=== PATIENT | male | born 1940 | race Caucasian/White ===

== ENCOUNTER 2023-01-18 09:27 | Emergency (ER) | payer OTHER, SELFPAY ==
[2023-01-18] VITALS (7 sets, daily range): BP systolic 129–159; BP diastolic 66–90; PULSE 62–87; RESP 16; TEMP 36.4; O2SAT 94–98; BMI 22.8
--- NOTE | 2023-01-18 09:41 | DI.CT.S_ITS ---
PROCEDURE: CT HEAD/BRAIN WO CON INDICATIONS: GAIT DISTURBANCE X1 MONTH TECHNIQUE: Noncontrast 4.5 mm thick angled axial sections acquired from the foramen magnum to the vertex, with coronal and sagittal reformats. For radiation dose reduction, the following was used: automated exposure control, adjustment of mA and/or kV according to patient size. COMPARISON: [facility], CR, XR CHEST 1V, 01/18/2023, 9:46. [facility], CT, CT ANGIO HEAD AND NECK, 01/18/2023, 10:33. FINDINGS: Image quality: Excellent. CSF spaces: Basal cisterns are patent. No extra-axial fluid collections. The ventricles are symmetric in size and shape. Brain: No intracranial bleeds or masses. There is cerebral volume loss for age, with resultant ventricular and sulcal prominence. There are periventricular and deep white matter chronic small vessel ischemic changes. There is intracranial internal carotid artery atherosclerosis. Skull and face: Calvarium and visualized facial bones appear intact, without suspicious lesions. Sinuses: Visualized sinuses and mastoids are clear. IMPRESSION: No territorial infarct is seen. No acute intracranial process is seen. No acute intracranial hemorrhage is seen. If there is strong clinical suspicion for an acute stroke, please consider a brain MRI for further evaluation, as it is more sensitive (assuming that there is no contraindication to MRI). Dictated by: Phillip Otero M.D. on 01/18/2023 at 9:52 Approved by: Phillip Otero M.D. on 01/18/2023 at 9:52
--- NOTE | 2023-01-18 09:41 | DI.RAD.S_ITS ---
PROCEDURE: XR CHEST 1V INDICATIONS: LIGHTHEADED, GEN WEAKNESS TECHNIQUE: One view of the chest was acquired. COMPARISON: None. FINDINGS: Surgical changes and devices: None. Lungs and pleura: Lungs are clear. No pleural effusions or pneumothorax. Mediastinum: The cardiac contours are within normal limits. The aorta demonstrates calcification and tortuosity. Bones and chest wall: No suspicious bony lesions. Overlying soft tissues appear unremarkable. IMPRESSION: Portable chest within normal limits for age. Dictated by: Phillip Otero M.D. on 01/18/2023 at 9:21 Approved by: Phillip Otero M.D. on 01/18/2023 at 9:22
--- NOTE | 2023-01-18 09:43 | ED.NEUROSD ---
HPI - Neuro Symptoms/Deficit General Chief Complaint: Neuro Symptoms/Deficit Stated Complaint: sent from [facility]; balance issues/dizzy/shaking Time Seen by Provider: 01/18/23 09:41 History of Present Illness HPI Narrative: 1 month of generalized gait disturbance (I feel wobbly). Patient presents from home by private vehicle for 1 month of symptoms. He states that he feels off balance when he walks, and it is particularly worse when the ground has changes and elevation. Patient states that yesterday he was working outside when he became so dizzy that he had to hold onto objects to get back into the house. This morning he was dizzy when he showered and decided to present for evaluation. Patient denies a room spinning sensation. He has difficulty in describing the type of dizziness that he has, he repeatedly states that he feels ?wobbly?. He has not sought medical care for this issue yet. On Anticoagulants: No Related Data Allergies Allergy/AdvReac Type Severity Reaction Status Date / Time Codeine Allergy Unknown CONFUSION/N Uncoded 08/26/17 12:10 AUSEA Review of Systems Review of Systems Narrative: CONSTITUTIONAL- Denies: fever, chills, fatigue HEENT- Denies: sore throat, nosebleed, vision changes RESPIRATORY- Denies: shortness of breath, cough, wheezing CARDIAC- Denies: chest pain, edema, orthopnea GI- Denies: abdominal pain, nausea, vomiting, constipation, diarrhea - Denies: frequency, dysuria, hematuria, flank pain MSK- Denies: extremity pain, extremity swelling, joint pain, joint swelling SKIN- Denies: rash, itching, burn, swelling NEUROLOGICAL-reports: Gait disturbance, dizziness Denies: headache, numbness, weakness PSYCHIATRIC- Denies: anxiety, depression, suicidal ideation, homicidal ideation Hematologic/Lymphatic On Anticoagulants: No Exam Initial Vital Signs Initial Vital Signs: Vital Signs Blood Pressure 159/90 H 01/18/23 09:31 Pulse Oximetry 97 01/18/23 09:31 Const: Well-nourished, Well-developed, appears stated age Eyes: PERRL, EOMI, conjunctiva normal ENT: Atraumatic, dentition normal, mucous membranes moist Cardiac: regular rate, regular rhythm RESP: unlabored, clear bilaterally, no wheezing GI: Atraumatic, soft, nontender, nondistended, no rebound, no guarding MSK: Atraumatic, full range of motion, pulses equal Skin: Warm, Dry, intact, no rashes Neuro: AO x3, CN II-XII grossly intact, moves all extremities, gait normal, no ataxia Psych: affect normal, mood normal, not suicidal, not homicidal Course Course Course Narrative: Nontoxic appearing patient with approximately 1 month of symptoms. I observed the patient's gait, there did not appear to be any gait instability or ataxia. Patient states that he has had vertigo in the past and this feels different, but does mention that his brother had an issue with 1 of the arteries in his brain that had to be operated on. Patient does not remember his medical history or the medications that he takes. I attempted to reach out to the next of kin, patient's son Marcos Warren, however there was no answer and I left a voicemail. Will obtain labs/imaging. Orders Ordered: ED Orders 01/18/23 09:40 CBC Auto Diff [Complete Blood Count AUTO DIFF] Stat CMP [Comprehensive Metabolic Panel] Stat Thyroid Stimulating Hormone Stat Trop I [Troponin I] Stat 01/18/23 09:41 CT head/brain wo con Stat Chest [XR chest 1V] Stat 01/18/23 10:20 Ammonia (NH3) Stat 01/18/23 10:37 CT angio head and neck Stat 01/18/23 10:40 Ictotest Urine Stat UA Complete [Urinalysis and Microscopic] Stat Reevaluation(s) Reevaluation #1: Laboratory work is significant for hyperglycemia, elevated liver enzymes. Patient states this he does not drink alcohol. We will add ammonia level Reevaluation #2: Ammonia level normal. Imaging significant for 70% left ICA stenosis, no infarcts noted. Patient ambulatory through the hallways without any difficulty. I advised the patient of his lab and imaging findings, I do not know the cause of his symptoms but there does not appear to be any indication for hospitalization at this moment. Patient leaves the end of the month to go back home to [place], he will follow up with his primary care physician at that time. Patient advised to return to the emergency department for any new or worsening concerns. ED return precautions discussed at bedside. Patient expressed understanding of the plan and is in agreement at this time. All questions answered at the time of discharge. Vital Signs Vital signs: Vital Signs - 8 hr 01/18/23 09:37 01/18/23 09:31 01/18/23 09:31 Temperature 97.5 F L Pulse Rate 87 Respiratory Rate 16 Blood Pressure 159/90 H 159/90 H Pulse Oximetry 98 97 Oxygen Delivery Method Room Air 01/18/23 10:00 01/18/23 10:00 01/18/23 10:32 Temperature Pulse Rate 67 69 Respiratory Rate Blood Pressure 129/68 Pulse Oximetry 94 96 Oxygen Delivery Method 01/18/23 10:41 01/18/23 10:41 01/18/23 11:00 Temperature Pulse Rate 68 65 Respiratory Rate Blood Pressure 133/70 Pulse Oximetry 94 94 Oxygen Delivery Method 01/18/23 11:30 01/18/23 11:30 Temperature Pulse Rate 62 Respiratory Rate Blood Pressure 139/66 Pulse Oximetry 95 Oxygen Delivery Method MDM - Neuro Symptoms/Deficit Lab Data 01/18/23 09:40 01/18/23 09:40 Labs: Lab Results 01/18/23 01/18/23 01/18/23 Range/Units 09:40 09:40 09:40 WBC 8.2 (4.5-11.0) X10^3/uL RBC 4.76 (4.5-5.9) X10^6/uL Hgb 15.9 (13.5-17.5) g/dL Hct 45.7 (41-53) % MCV 95.8 (80-100) fL MCH 33.4 (26-34) PG MCHC 34.9 (30-36) % RDW 13.2 (11.6-14.8) % Plt Count 229 (150-400) X10^3/uL Neut % (Auto) 57.6 (50-75) % Lymph % (Auto) 18.0 L (25-40) % Slope % (Auto) 11.6 (3-14) % Eos % (Auto) 11.4 H (2-4) % Baso % (Auto) 1.4 (0-2) % Neut # (Auto) 4700 (7933-9118) /uL Lymph # (Auto) 1500 (0894-6724) /uL [place]ope # (Auto) 900 (0-900) /uL Eos # (Auto) 900 H (0-450) /uL Baso # (Auto) 100 (0-100) /uL Sodium 134 L (137-145) mmol/L Potassium 4.4 (3.4-5.1) mmol/L Chloride 101 (98-107) mmol/L Carbon Dioxide 23 (22-32) mmol/L BUN 24 H (9-20) mg/dL Creatinine 1.13 (0.66-1.25) mg/dL Estimated GFR > 60 (>60) mL/min BUN/Creatinine Ratio 21.2 (6-22) Glucose 282 H (80-110) mg/dL Calcium 9.7 (8.4-10.2) mg/dL Total Bilirubin 2.2 H (0.2-1.3) mg/dL AST 272 H (17-59) IU/L ALT 474 H (<50) IU/L Alkaline Phosphatase 664 H (38-126) U/L Ammonia (9-30) umol/L Troponin I < 0.012 (0.01-0.034) ng/mL Total Protein 8.2 (6.3-8.2) g/dL Albumin 4.2 (3.5-5.0) g/dL Globulin 4.0 (1.7-4.1) g/dL Albumin/Globulin Ratio 1.1 (1.0-2.8) TSH 1.06 (0.47-4.68) uIU/mL Urine Color Urine Appearance Urine pH (4.5-8.0) Ur Specific [place] (1.000-1.035) Urine Protein (Negative) Urine Glucose (UA) (Negative) g/dL Urine Ketones (NEGATIVE) Urine Occult Blood (Negative) Urine Nitrate (Negative) Urine Bilirubin (NEGATIVE) Ur Bilirubin Confirm (Negative) Urine Urobilinogen (0.2) E.U./dL Ur Leukocyte Esterase (NEGATIVE) Urine RBC (0-5/HPF) Urine WBC (0-5/HPF) Ur Squamous Epith Cells (0-5/HPF) Urine Bacteria (None) Granular Casts (None) Ur Culture Indicated? 01/18/23 01/18/23 Range/Units 10:20 10:40 WBC (4.5-11.0) X10^3/uL RBC (4.5-5.9) X10^6/uL Hgb (13.5-17.5) g/dL Hct (41-53) % MCV (80-100) fL MCH (26-34) PG MCHC (30-36) % RDW (11.6-14.8) % Plt Count (150-400) X10^3/uL Neut % (Auto) (50-75) % Lymph % (Auto) (25-40) % Slope % (Auto) (3-14) % Eos % (Auto) (2-4) % Baso % (Auto) (0-2) % Neut # (Auto) (7564-6210) /uL Lymph # (Auto) (7901-2785) /uL Slope # (Auto) (0-900) /uL Eos # (Auto) (0-450) /uL Baso # (Auto) (0-100) /uL Sodium (137-145) mmol/L Potassium (3.4-5.1) mmol/L Chloride (98-107) mmol/L Carbon Dioxide (22-32) mmol/L BUN (9-20) mg/dL Creatinine (0.66-1.25) mg/dL Estimated GFR (>60) mL/min BUN/Creatinine Ratio (6-22) Glucose (80-110) mg/dL Calcium (8.4-10.2) mg/dL Total Bilirubin (0.2-1.3) mg/dL AST (17-59) IU/L ALT (<50) IU/L Alkaline Phosphatase (38-126) U/L Ammonia 22 (9-30) umol/L Troponin I (0.01-0.034) ng/mL Total Protein (6.3-8.2) g/dL Albumin (3.5-5.0) g/dL Globulin (1.7-4.1) g/dL Albumin/Globulin Ratio (1.0-2.8) TSH (0.47-4.68) uIU/mL Urine Color Yellow Urine Appearance Clear Urine pH 5.0 (4.5-8.0) Ur Specific [place] 1.025 (1.000-1.035) Urine Protein 2+ H (Negative) Urine Glucose (UA) 2+ H (Negative) g/dL Urine Ketones Trace H (NEGATIVE) Urine Occult Blood Trace-intact (Negative) Urine Nitrate Negative (Negative) Urine Bilirubin 1+ H (NEGATIVE) Ur Bilirubin Confirm Positive H (Negative) Urine Urobilinogen 4.0 H (0.2) E.U./dL Ur Leukocyte Esterase Negative (NEGATIVE) Urine RBC 1-5/hpf (0-5/HPF) Urine WBC 0-1/hpf (0-5/HPF) Ur Squamous Epith Cells 0-1 /hpf (0-5/HPF) Urine Bacteria Occasional (0-1) (None) Granular Casts 5-10/lpf (None) Ur Culture Indicated? Cult not indicated Urine Dip Bedside Urine Glucose 500 mg/dl Bedside Urine Bilirubin - Negative Bedside Urine Ketone +/- 5 Urine Specific [place] 1.015 Bedside Urine Occult Blood +/- Bedside Urine pH 5.5 Bedside Urine Protein + 30 Bedside Urine Urobilinogen +/- 1mg Bedside Urine Nitrite - Negative Bedside Urine Leukocytes - Negative Esterase Discharge Plan Departure Patient Disposition: Home Clinical Impression: Elevated liver enzymes Instructions: How to Prevent Falls, Liver Function Tests, DI for Carotid Artery Stenosis Activity Restrictions/Additional Instructions: I DO NOT KNOW THE CAUSE FOR YOUR GAIT INSTABILITY, HOWEVER YOUR CT SCAN SHOWED NO EVIDENCE OF STROKE. YOU DID HAVE 70% NARROWING OF YOUR LEFT PROXIMAL INTERNAL CAROTID ARTERY, I RECOMMEND THAT YOU FOLLOW-UP WITH YOUR PRIMARY CARE PHYSICIAN FOR THIS ISSUE. IN ADDITION YOUR LIVER ENZYMES WERE ELEVATED, HOWEVER WE HAVE NO PREVIOUS VALUES AND THIS COULD BE CHRONIC. AGAIN, I RECOMMEND THAT YOU FOLLOW-UP WITH YOUR PRIMARY CARE PHYSICIAN FOR THIS FINDING. AVOID TYLENOL AND ALCOHOL. Referrals: Miscellaneous,Doctor[facility] [Primary Care Provider] - Denisa Harvey MD [Physician] - Stand Alone Forms: Patient Portal/API
[2023-01-18 09:53] LABS: Add Manual Diff / Slide Review NO; Basophils Absolute Auto 100 /uL (0-100); Basophils Percent Auto 1.4 % (0-2); Eosinophils Absolute Auto 900 /uL (0-450); Eosinophils Percent Auto 11.4 % (2-4); Hematocrit 45.7 % (41-53); Hemoglobin 15.9 g/dL (13.5-17.5); Lymphocytes Absolute Auto 1500 /uL (1100-4500); Mean Corpuscular HGB Conc 34.9 % (30-36); Mean Corpuscular Hemoglobin 33.4 PG (26-34); Mean Corpuscular Volume 95.8 fL (80-100); Monocytes Absolute Auto 900 /uL (0-900); Monocytes Percent Auto 11.6 % (3-14); Neutrophils Absolute Auto 4700 /uL (1500-7000); Neutrophils Percent Auto 57.6 % (50-75); Platelet Count 229 X10^3/uL (150-400); Red Blood Cell Count 4.76 X10^6/uL (4.5-5.9); Red Cell Distribution Width 13.2 % (11.6-14.8); White Blood Cell Count 8.2 X10^3/uL (4.5-11.0)
[2023-01-18 10:04] LABS: Alanine Aminotransferase 474 IU/L (<50); Albumin 4.2 g/dL (3.5-5.0); Albumin Globulin Ratio 1.1 (1.0-2.8); Alkaline Phosphatase 664 U/L (38-126); Aspartate Aminotransferase 272 IU/L (17-59); BUN Creatinine Ratio 21.2 (6-22); Bilirubin Total 2.2 mg/dL (0.2-1.3); Blood Urea Nitrogen 24 mg/dL (9-20); Calcium 9.7 mg/dL (8.4-10.2); Carbon Dioxide 23 mmol/L (22-32); Chloride 101 mmol/L (98-107); Estimated Glomerular Filt Rate > 60 mL/min (>60); Glucose 282 mg/dL (80-110); HEMOLYSIS 20 (0-50); Potassium 4.4 mmol/L (3.4-5.1); Sodium 134 mmol/L (137-145); Total Protein 8.2 g/dL (6.3-8.2)
[2023-01-18 10:16] LABS: Troponin I < 0.012 ng/mL (0.01-0.034)
--- NOTE | 2023-01-18 10:22 | PC.NURSE ---
Patient left department with technology risk intern to diagnostic department.
[2023-01-18 10:35] LABS: Thyroid Stimulating Hormone 1.06 uIU/mL (0.47-4.68)
--- NOTE | 2023-01-18 10:37 | DI.CT.S_ITS ---
PROCEDURE: CT ANGIO HEAD AND NECK INDICATIONS: GAIT DISTURBANCE X 1 MONTH TECHNIQUE: After the administration of intravenous contrast, 1 mm thick sections acquired from the aortic arch through the [place] of [place]. 3-dimensional iypstep-nfzauiruf-xqaqhdqpsq (MIP) and/or volume rendering reformats were acquired of the central intracranial vasculature and neck separately. For radiation dose reduction, the following was used: automated exposure control, adjustment of mA and/or kV according to patient size. COMPARISON: [facility], CR, XR CHEST 1V, 01/18/2023, 9:46. [facility], CT, CT HEAD/BRAIN WO CON, 01/18/2023, 10:33. FINDINGS: Image quality: Diagnostic. BRAIN: CSF spaces: Ventricles are normal in size and shape. Basal cisterns are patent. No extra-axial fluid collections. Brain: No significant abnormality of the brain can be seen. Skull and face: Calvarium and facial bones appear intact, without suspicious lesions. Orbits appear normal. Sinuses: Sinuses and mastoids are clear. HEAD CT ANGIOGRAPHY: Anterior circulation: Intracranial internal carotid arteries are normal in size and flow. The flow within the paired anterior cerebral arteries is normal and symmetric. Note is made of an accessory branch of the a anterior cerebral artery system, which emanates from the anterior communicating artery. The flow within the middle cerebral arteries is normal and symmetric. The anterior communicating artery is seen. No aneurysms are seen. Posterior circulation: Visualized portions of the vertebral arteries demonstrate normal caliber, and join to form a normal appearing basilar artery. Flow within the posterior cerebral arteries is normal and symmetric. No aneurysms are seen. NECK CT ANGIOGRAPHY: Carotid system: The great vessels demonstrate a conventional anatomy as they arise from the aortic arch. The origins of the common carotid arteries appear patent. The common carotid arteries demonstrate normal caliber and courses. The bifurcation regions demonstrate atherosclerotic irregularity and calcification. There is an approximately 70% narrowing seen involving the left proximal internal carotid artery, without a hemodynamically significant stenosis on the right. The more distal internal carotid arteries demonstrate normal course and caliber. Posterior circulation: The origins of the vertebral arteries both appear widely patent. The more superior extracranial portions of both vertebral arteries also demonstrate normal courses and calibers. They join to form a normal appearing basilar artery. Soft tissues: Visualized neck soft tissues demonstrate no suspicious abnormalities. Bones: No suspicious bony lesions. Visualized cervical spine appears normally aligned. At least moderate cervical spine degenerative change can be seen. IMPRESSION: Approximately 70% narrowing seen involving the left proximal internal carotid artery. No significant intracranial arterial abnormality is seen. Any quantitative measurements of stenosis were performed using NASCET criteria. Dictated by: Phillip Otero M.D. on 01/18/2023 at 9:47 Approved by: Phillip Otero M.D. on 01/18/2023 at 9:52
[2023-01-18 10:39] LABS: Ammonia (NH3) 22 umol/L (9-30)
[2023-01-18 10:59] LABS: Appearance Urine UA CLEAR; Bilirubin Urine UA 1+ (NEGATIVE); Color Urine UA YELLOW; Glucose Urine UA 2+ g/dL (Negative); Ketones Urine UA TRACE (NEGATIVE); Leukocyte Esterase Urine UA NEGATIVE (NEGATIVE); Nitrite Urine UA NEGATIVE (Negative); Occult Blood Urine UA TRACE-INTACT (Negative); Protein Urine UA 2+ (Negative); Specific Gravity Urine UA 1.025 (1.000-1.035)
[2023-01-18 11:21] LABS: Bacteria Urine Occasional (0-1); Granular Casts Urine 5-10/LPF; RBC Urine 1-5/HPF (0-5/HPF); Squamous Epithelial Cell Urine 0-1 /HPF (0-5/HPF); WBC Urine 0-1/HPF (0-5/HPF)
[2023-01-18 11:22] LABS: Culture Indicated Urine Cult Not Indicated; Ictotest Urine Positive (Negative)
== END 2023-01-18 11:44 | disposition home or self-care (01) ==
PROVIDERS: Emergency Provider Emergency Medicine
DX: R74.8 Abnormal levels of other serum enzymes (principal); R26.9 Unspecified abnormalities of gait and mobility; R42 Dizziness and giddiness
CPT/HCPCS: 36415; 70450; 70496; 70498; 71045; 80053; 81001; 81003; 82140; 84443; 84484; 85025; 99284; 99285; Q9967

== ENCOUNTER 2023-12-17 17:25 | Emergency (ER) | payer MEDICARE, SELFPAY ==
--- NOTE | 2023-12-17 17:28 | PC.NURSE ---
Pt called immediately into triage. Per Registration pt going to bathroom. Observed pt ambulating with steady gait down main lemon to BR.
[2023-12-17 17:31] VITALS: BP 159/77; PULSE 85; RESP 16; TEMP 36.9; O2SAT 99
--- NOTE | 2023-12-17 17:44 | DI.CT.S_ITS ---
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 For radiation dose reduction, the following was used: automated exposure control, adjustment of mA and/or kV according to patient size. COMPARISON: [facility], CT, CT HEAD/BRAIN WO CON, 01/18/2023, 10:33. FINDINGS: Image quality: Diagnostic CSF spaces: Basal cisterns are patent. Lateral ventricles are symmetric. Volume: Vascular calcifications. Periventricular white matter disease is commonly seen with chronic microangiopathy. Volume loss is present. These findings are zwmb-hd-meqtsbxj Brain: No intracranial hemorrhage. Donald-white differentiation is grossly maintained. Craniofacial structures: No significant paranasal sinus opacity IMPRESSION: No acute intracranial hemorrhage. If there is high concern for parenchymal pathology, consider further evaluation with MRI. Dictated by: Abbe Saez M.D. on 12/17/2023 at 18:31 Approved by: Abbe Saez M.D. on 12/17/2023 at 18:32
--- NOTE | 2023-12-17 17:44 | DI.CT.S_ITS ---
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 3-dimensional zkelqfo-nwidmhbkh-ksdgglstej (MIP) and/or volume rendering reformats were acquired of the central intracranial vasculature and neck separately. For radiation dose reduction, the following was used: automated exposure control, adjustment of mA and/or kV according to patient size. COMPARISON: [facility], CT, CT ANGIO HEAD AND NECK, 01/18/2023, 10:33. FINDINGS: Image quality: Diagnostic HEAD ANGIOGRAPHY: Anterior circulation: ICAs: Rltg-fx-eepyqido cavernous carotid calcifications ACAs: Normal and symmetric MCAs: Normal and symmetric AComm: No aneurysm Venous sinuses: Not well assessed on this study Posterior circulation: Dominance: Left Vertebral arteries: No stenosis or occlusion. No aneurysm. Basilar artery: Unremarkable PComms: No aneurysm off premise service representative: Unremarkable NECK ANGIOGRAPHY: Aortic arch and subclavian arteries: Dism-dx-cttidcuz atherosclerotic calcifications CCAs: No stenosis, occlusion, or aneurysm. ICA origins (by NASCET criteria): Lqfu-hi-rckzbhup ICA origin calcifications on the right, less than 50% narrowing., 70% narrowing is seen on the left. ICAs: No stenosis, occlusion or aneurysm. ECAs: Origins are patent. Vertebral arteries: Zwue-vz-lljehrad narrowing is seen at the bilateral origins. Mild focal narrowing is seen in the mid left cervical ICA, likely related to the cervical osteophytes Soft tissues: Partially seen prominent axillary, cervical, and mediastinal lymph nodes, nonspecific possibly reactive. These are not technically enlarged by size criteria. Lung apices: No pneumothorax Bones: There are degenerative changes. IMPRESSION: No large vessel occlusion. High-grade stenosis, about 70%, is again seen at the ICA origin. Other areas of less significant atherosclerotic calcifications as described above. If there is high concern for infarct, consider MRI. Other findings as above. Any quantitative measurements of stenosis were performed using NASCET criteria. Dictated by: Abbe Saez M.D. on 12/17/2023 at 18:32 Approved by: Abbe Saez M.D. on 12/17/2023 at 18:40
--- NOTE | 2023-12-17 17:47 | EKG_ITS ---
[address] [address] Test Date: 2023-12-17 Pat Name: Min Warren Department: [facility] Room: Gender: Male [employer] Maker: ALFREDO : 1940 Requested By: Order Number: [id number] Reading MD: Eugenio Jean Measurements Intervals [place] Rate: 69 P: 59 WV: 158 QRS: 28 QRSD: 94 T: 40 QT: 376 QTc: 402 Interpretive Statements Normal sinus rhythm Electronically Signed On 12-19-2023 18:28:23 PDT by Eugenio Jean
--- NOTE | 2023-12-17 17:47 | DI.RAD.S_ITS ---
PROCEDURE: XR CHEST 1V INDICATIONS: chest pain TECHNIQUE: One view of the chest was acquired. COMPARISON: [facility], CR, XR CHEST 1V, 01/18/2023, 9:46. FINDINGS: Surgical changes and devices: None. Lungs and pleura: No dense consolidation or pleural effusion Mediastinum: Normal heart size Bones and chest wall: Degenerative changes. Indeterminate small densities are seen just inferior to the left humerus. IMPRESSION: No acute radiographic abnormality. Dictated by: Abbe Saez M.D. on 12/17/2023 at 18:28 Approved by: Abbe Saez M.D. on 12/17/2023 at 18:29
[2023-12-17 18:02] LABS: Add Manual Diff / Slide Review NO; Basophils Absolute Auto 100 /uL (0-100); Basophils Percent Auto 0.9 % (0-2); Eosinophils Absolute Auto 500 /uL (0-450); Eosinophils Percent Auto 4.3 % (2-4); Hematocrit 42.5 % (41-53); Hemoglobin 14.8 g/dL (13.5-17.5); Lymphocytes Absolute Auto 900 /uL (1100-4500); Lymphocytes Percent Auto 7.8 % (25-40); Mean Corpuscular HGB Conc 34.8 % (30-36); Mean Corpuscular Volume 88.9 fL (80-100); Monocytes Absolute Auto 1000 /uL (0-900); Monocytes Percent Auto 8.6 % (3-14); Neutrophils Absolute Auto 9500 /uL (1500-7000); Neutrophils Percent Auto 78.4 % (50-75); Platelet Count 220 X10^3/uL (150-400); Red Blood Cell Count 4.78 X10^6/uL (4.5-5.9); Red Cell Distribution Width 14.9 % (11.6-14.8); White Blood Cell Count 12.1 X10^3/uL (4.5-11.0)
[2023-12-17 18:17] LABS: INR 1.4 (0.9-1.3); Prothrombin Time 16.3 SECONDS (9.4-12.5)
[2023-12-17 18:21] LABS: Alanine Aminotransferase 23 IU/L (<50); Albumin 3.5 g/dL (3.5-5.0); Albumin Globulin Ratio 0.8 (1.0-2.8); Alkaline Phosphatase 124 U/L (38-126); Aspartate Aminotransferase 44 IU/L (17-59); BUN Creatinine Ratio 22.7 (6-22); Bilirubin Total 0.6 mg/dL (0.2-1.3); Blood Urea Nitrogen 22 mg/dL (9-20); Carbon Dioxide 28 mmol/L (22-32); Chloride 101 mmol/L (98-107); Creatine Kinase 27 U/L (55-170); Estimated Glomerular Filt Rate > 60 mL/min (>60); Globulin 4.3 g/dL (1.7-4.1); Glucose 194 mg/dL (80-110); HEMOLYSIS 20 (0-50); Lipase 146 U/L (23-300); Potassium 3.9 mmol/L (3.4-5.1); Sodium 134 mmol/L (137-145); Total Protein 7.8 g/dL (6.3-8.2)
[2023-12-17 18:33] LABS: NT-proBNP (BNP-Adult 18+) 222 pg/mL (<450); Troponin I < 0.012 ng/mL (0.01-0.034)
[2023-12-17 18:35] LABS: PTT Partial Thromboplastin Tim 32 SECONDS (25.1-36.5)
--- NOTE | 2023-12-17 19:32 | ED.HA ---
HPI - Headache General Chief Complaint: Headache Stated Complaint: sharp px in neck shoots into head, Hx stroke Time Seen by Provider: 12/17/23 18:57 History of Present Illness HPI Narrative: 83-year-old male presents for left-sided neck pain that occasionally radiates into his head. Symptoms have been present for the last 4-5 days. He states that he has been taking Excedrin, which relieves the pain for about 8 hours, but it seems to always returned. Patient reports a previous history of stroke earlier this year in [place], where he resides 8/12 months of the year. He states that he was concerned that his symptoms may be related to stroke or stroke-like symptoms. He states that he was chronic pain in his neck and shoulders and has previously seen pain management for these pains, receiving injections and trigger point shots. Patient denies numbness, weakness, worst headache of life, vision changes, other complaints at this time. Related Data Previous Rx's Medication Instructions Recorded methocarbamol 500 mg tablet 500 mg PO TID #30 tabs 12/17/23 methylprednisolone 4 mg tablets in See Rx Instructions PO .COMPLEX 12/17/23 a dose pack (Medrol (Devendra)) #21 ea Allergies Allergy/AdvReac Type Severity Reaction Status Date / Time Codeine Allergy Unknown CONFUSION/N Uncoded 08/26/17 12:10 AUSEA Exam Initial Vital Signs Initial Vital Signs: Vital Signs Temperature 98.4 F 12/17/23 17:31 Pulse Rate 85 12/17/23 17:31 Respiratory Rate 16 12/17/23 17:31 Blood Pressure 159/77 H 12/17/23 17:31 Pulse Oximetry 99 12/17/23 17:31 Oxygen Delivery Method Room Air 12/17/23 17:31 Const: Awake, alert, no acute distress, nontoxic appearing Cardiac: regular rate, regular rhythm RESP: unlabored, clear bilaterally, no wheezing GI: Soft, nontender, nondistended, no rebound, no guarding MSK: No midline tenderness, tenderness and spasm along left-sided trapezius muscle Skin: Warm, Dry, intact, no rashes Neuro: AO x3, CN II-XII grossly intact, moves all extremities Procedures Nerve Block Nerve Block 1: Local Anesthetic: lidocaine 1% and with epi Amount of anesthesia used (mL): 3 Side: left Nerve Blocks: other (trigger point injection) Course Orders Ordered: ED Orders 12/17/23 17:44 CT angio head and neck Stat CT head/brain wo con Stat 12/17/23 17:47 XR chest 1V Stat EKG-12 Lead Stat 12/17/23 17:53 Complete Blood Count AUTO DIFF Stat Comprehensive Metabolic Panel Stat Lipase Stat Magnesium Stat NT-proBNP (BNP-Adult 18+) Stat PTT Partial Thromboplastin Eder Stat Prothrombin Time INR Stat Troponin & CK Cardiac Panel Stat Discontinued Medications Lidocaine/Epinephrine (Lidocaine 1% W/Epi) 4 ml INJ INTRA-OP ONE Stop: 12/17/23 19:43 Last Admin: 12/17/23 19:56 Dose: Not Given Documented By: BS Lidocaine/Epinephrine (Lidocaine 1% W/Epi) 24 ml INJ INTRA-OP ONE Stop: 12/17/23 19:44 Last Admin: 12/17/23 19:55 Dose: 10 ml Documented By: LORI Vital Signs Vital signs: Vital Signs - 8 hr 12/17/23 17:31 12/17/23 19:37 12/17/23 19:38 Temperature 98.4 F Pulse Rate 85 71 Respiratory Rate 16 Blood Pressure 159/77 H 162/79 H Pulse Oximetry 99 98 Oxygen Delivery Method Room Air Room Air 12/17/23 19:38 12/17/23 20:30 12/17/23 20:30 Temperature Pulse Rate 71 79 Respiratory Rate Blood Pressure 165/73 H Pulse Oximetry 98 97 Oxygen Delivery Method Room Air MDM - Headache Differential Diagnosis Differential diagnosis: Likely migraine, tension headache and headache Lab Data 12/17/23 17:53 12/17/23 17:53 Labs: Lab Results 12/17/23 Range/Units 17:53 WBC 12.1 H (4.5-11.0) X10^3/uL RBC 4.78 (4.5-5.9) X10^6/uL Hgb 14.8 (13.5-17.5) g/dL Hct 42.5 (41-53) % MCV 88.9 (80-100) fL MCH 31.0 (26-34) PG MCHC 34.8 (30-36) % RDW 14.9 H (11.6-14.8) % Plt Count 220 (150-400) X10^3/uL Neut % (Auto) 78.4 H (50-75) % Lymph % (Auto) 7.8 L (25-40) % [place] % (Auto) 8.6 (3-14) % Eos % (Auto) 4.3 H (2-4) % Baso % (Auto) 0.9 (0-2) % Neut # (Auto) 9500 H (1546-2792) /uL Lymph # (Auto) 900 L (4595-0763) /uL [place] # (Auto) 1000 H (0-900) /uL Eos # (Auto) 500 H (0-450) /uL Baso # (Auto) 100 (0-100) /uL PT 16.3 H (9.4-12.5) SECONDS INR 1.4 H (0.9-1.3) APTT 32 (25.1-36.5) SECONDS Sodium 134 L (137-145) mmol/L Potassium 3.9 (3.4-5.1) mmol/L Chloride 101 (98-107) mmol/L Carbon Dioxide 28 (22-32) mmol/L BUN 22 H (9-20) mg/dL Creatinine 0.97 (0.66-1.25) mg/dL Estimated GFR > 60 (>60) mL/min BUN/Creatinine Ratio 22.7 H (6-22) Glucose 194 H (80-110) mg/dL Calcium 9.0 (8.4-10.2) mg/dL Magnesium 2.0 (1.6-2.3) mg/dL Total Bilirubin 0.6 (0.2-1.3) mg/dL AST 44 (17-59) IU/L ALT 23 (<50) IU/L Alkaline Phosphatase 124 (38-126) U/L Total Creatine Kinase 27 L (55-170) U/L Troponin I < 0.012 (0.01-0.034) ng/mL NT-Pro-B Natriuret Pep 222 (<450) pg/mL Total Protein 7.8 (6.3-8.2) g/dL Albumin 3.5 (3.5-5.0) g/dL Globulin 4.3 H (1.7-4.1) g/dL Albumin/Globulin Ratio 0.8 L (1.0-2.8) Lipase 146 (23-300) U/L [facility] Narrative Medical decision making narrative: Left-sided neck pain going into his head. No signs or symptoms of stroke, on exam this is consistent with musculoskeletal neck strain. 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 Patient informed of lab and imaging results, he was relieved to know that this is not a stroke. He underwent trigger point injection with overall minimal relief, however patient states that when he had to have trigger point injections in his back these were not very successful either. Given short course of muscle relaxers and a steroid taper for his musculoskeletal neck strain. I counseled patient when he goes back home to [place] he should follow up with his pain management doctor if he continues to have neck pain. Discharge Plan Departure Patient Disposition: Home Clinical Impression: Neck pain Instructions: DI for Headache, DI for Neck Pain Activity Restrictions/Additional Instructions: Your laboratory work and CT imaging today were reassuring. 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 A trigger point injection was made into your left neck, which may help to relieve some of your pain. I am prescribing a short course of muscle relaxers and a steroid taper to see if this helps her pain. When you go home to [place] I recommend talking to your pain specialist about further treatments for your neck. In addition I recommend following up with your primary care doctor to make sure that the narrowing in your artery is monitored Prescriptions: New methylprednisolone [Medrol (Devendra)] 4 mg tablets,dose pack See Rx Instructions .ROUTE .COMPLEX Qty: 21 0RF Rx Instructions: orally per package directions methocarbamol 500 mg tablet 500 mg PO TID Qty: 30 0RF Referrals: Miscellaneous,DoctorMD [Primary Care Provider] - Stand Alone Forms: Patient Portal/API
[2023-12-17 19:37] VITALS: PULSE 71; O2SAT 98
[2023-12-17 19:38] VITALS: BP 162/79; PULSE 71; O2SAT 98
[2023-12-17] MEDS: LIDOCAINE 1% W/EPI 24 ML INJ (19:55)
[2023-12-17 20:30] VITALS: BP 165/73; PULSE 79; O2SAT 97
== END 2023-12-17 20:36 | disposition home or self-care (01) ==
PROVIDERS: Emergency Medicine; Emergency Provider Emergency Medicine
DX: M54.2 Cervicalgia (principal)
CPT/HCPCS: 36415; 64450; 70450; 70496; 70498; 71045; 80053; 82550; 83690; 83735; 83880; 84484; 85025; 85610; 85730; 93005; 99283; 99284; Q9967